=== PATIENT | female | born 1955 | race Caucasian/White ===

== ENCOUNTER 2017-02-07 14:06 | Emergency (ER) | payer MEDICARE, BC ==
--- NOTE | 2017-02-07 14:31 | Emergency Department Record ---
History of Present Illness - General Chief Complaint: Cough Stated Complaint: COUGH Time Seen by Provider: 02/07/17 14:16 Source: Patient, RN notes reviewed Mode of Arrival: Ambulatory - History of Present Illness Initial Comments: cough for 2 weeks and she recently had a sore throat and she was on an antibiotic for 10 days BID(Minocin 50 mg). Elvae aide in ER. Patient has sputum clear and her Uncle has a cough too. [facility] heart [place] transplant 2006 at [facility]. Patient's primary Dr. is Trent and she also has used her sisters jerrymina and proair inhaler. Diarrhea today times 2 and two stools loose yesterday. Patient also diabetic, Complaint: Cough Onset/Timin -: Week(s) Consistency: Intermittent - Related Data Home Medications Medication Instructions Recorded Confirmed Last Taken Acetaminophen [Tylenol 325Mg] 1 - 2 tab PO Q4H PRN 02/11/15 02/07/17 02/07/17 Aspirin [Aspirin EC] 81 mg PO DAILY 02/11/15 02/07/17 02/07/17 Calcium Carbonate/Vitamin D3 1 each PO DAILY 02/11/15 02/07/17 02/07/17 [Calcium 1,000 + D3 Caplet] Carvedilol [Coreg] 12.5 mg PO BID 02/11/15 02/07/17 02/07/17 Diphenhydramine HCl [Benadryl] 25 mg PO Q6H PRN 02/11/15 02/07/17 02/07/17 Ferrous Sulfate 325 mg PO BID 02/11/15 02/07/17 02/07/17 Insulin NPL/Insulin Lispro 16 units SQ QPM 02/11/15 02/07/17 02/07/17 [Humalog Mix 75/25 Vial] Insulin NPL/Insulin Lispro 30 units SQ QAM 02/11/15 02/07/17 02/07/17 [Humalog Mix 75/25 Vial] Magnesium Chloride [Mag64] 2 tab PO BID 02/11/15 02/07/17 02/07/17 Pravastatin Sodium [Pravachol] 40 mg PO QHS 02/11/15 02/07/17 02/07/17 Prednisone [Prednisone 1Mg] 4 mg PO DAILY 02/11/15 02/07/17 02/07/17 Sennosides [Senna] 8.6 mg PO DAILY 02/11/15 02/07/17 02/07/17 Sertraline HCl [Zoloft] 100 mg PO DAILY 02/11/15 02/07/17 02/07/17 Tacrolimus [Prograf] 1.5 mg PO Q12H 02/11/15 02/07/17 02/07/17 Previous Rx's Medication Instructions Recorded Albuterol Sulfate [Ventolin Hfa] 1 - 2 puff IH .EVERY 4-6 HRS PRN 02/07/17 #1 inhaler Prednisone [Prednisone 10Mg] 10 mg PO ASDIR #30 tab 02/07/17 Allergies Allergy/AdvReac Type Severity Reaction Status Date / Time Carbapenems Allergy Unknown PT UNSURE Verified 02/07/17 14:12 OF REACTION Cephalosporins Allergy Unknown HIVES Verified 02/07/17 14:12 codeine Allergy Unknown VOMITING Verified 02/07/17 14:12 erythromycin base Allergy Unknown HIVES Verified 02/07/17 14:12 hydrocodone Allergy Unknown VOMITING Verified 02/07/17 14:12 Macrolide Antibiotics Allergy Unknown HIVES Verified 02/07/17 14:12 morphine Allergy Unknown VOMITING Verified 02/07/17 14:12 Opioids - Morphine Analogues Allergy Unknown VOMITING Verified 02/07/17 14:12 Penicillins Allergy Unknown HIVES Verified 02/07/17 14:12 Phenothiazines Allergy Unknown HIVES Verified 02/07/17 14:12 promethazine Allergy Unknown HIVES Verified 02/07/17 14:12 Sulfa (Sulfonamide Allergy Unknown HIVES Verified 02/07/17 14:12 Antibiotics) sulfacetamide Allergy Unknown HIVES Verified 02/07/17 14:12 ondansetron HCl Allergy HIVES Verified 02/07/17 14:12 [From Zofran (as hydrochloride)] Travel Screening - Travel/Exposure Within Last 30 Days Have you traveled within the last 30 days?: No - Travel/Exposure Within Last Year Have you traveled outside the [place] in the last year?: No - Additonal Travel Details Have you been exposed to anyone with a communicable illness?: No - Travel Symptoms Symptom Screening: None Review of Systems Reviewed: No additional complaints except as noted below Constitutional: Reports: As per HPI. Denies: Chills, Fever, Malaise, Night sweats, Weakness, Weight change Eyes: Reports: As per HPI. Denies: Eye discharge, Eye pain, Photophobia, Vision change ENT: Reports: As per HPI, Congestion. Denies: Dental pain, Ear pain, Epistaxis , Hearing loss, Throat pain Respiratory: Reports: As per HPI, Cough. Denies: Dyspnea, Hemoptysis, Stridor, Wheezes Cardiovascular: Reports: As per HPI. Denies: Arrhythmia, Chest pain, Dyspnea on exertion, Edema, Murmurs, Orthopnea, Palpitations, Paroxysmal nocturnal dyspnea, Rheumatic Fever, Syncope Endocrine: Reports: As per HPI. Denies: Fatigue, Heat or cold intolerance, Polydipsia, Polyuria Gastrointestinal: Reports: As per HPI. Denies: Abdominal pain, Constipation, Diarrhea, Hematemesis, Hematochezia, Melena, Nausea, Vomiting Genitourinary: Reports: As per HPI. Denies: Abnormal menses, Discharge, Dyspareunia, Dysuria, Frequency, Hematuria, Incontinence, Retention, Urgency Musculoskeletal: Reports: As per HPI. Denies: Arthralgia, Back pain, Gout, Joint swelling, Myalgia, Neck pain Skin: Reports: As per HPI. Denies: Bruising, Change in color, Change in hair/ nails, Lesions, Pruritus, Rash Neurological: Reports: As per HPI. Denies: Abnormal gait, Confusion, Headache, Numbness, Paresthesias, Seizure, Tingling, Tremors, Vertigo, Weakness Psychiatric: Reports: As per HPI. Denies: Anxiety, Auditory hallucinations, Depression, Homicidal thoughts, Suicidal thoughts, Visual hallucinations Hematological/Lymphatic: Reports: As per HPI. Denies: Anemia, Blood Clots, Easy bleeding, Easy bruising, Swollen glands Past Medical History - SOCIAL HISTORY Smoking Status: Former smoker Alcohol Use: None Drug Use: None - RESPIRATORY Hx Respiratory Disorders: No - CARDIOVASCULAR Hx Cardio Disorders: Yes Comment:: Heart transplant 2006 - NEURO Hx Neuro Disorders: No - GI Hx GI Disorders: Yes Hx Abdominal Pain: Yes Hx Diverticulitis: Yes - Hx Genitourinary Disorders: Yes Hx Renal Disease: Yes Comment:: Kidney transplant 2009 and removal. 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) - MUSCULOSKELETAL Hx Musculoskeletal Disorders: No - PSYCH Hx Psych Problems: Yes Hx Anxiety: Yes - HEMATOLOGY/ONCOLOGY Hx Hematology/Oncology Disorders: Yes Hx Blood Transfusions: Yes Hx Blood Transfusion Reaction: No Family Medical History Any Significant Family History?: Yes Hx Anxiety: Mother Hx Cancer: Father Hx Depression: Mother Hx Diabetes: Mother Hx Heart Disease: Mother Hx HTN: Mother Hx Kidney Disease: Mother Physical Exam - General General Appearance: Alert, Oriented x3, Cooperative, No acute distress - Head Head exam: Normal inspection - Eye Eye exam: Normal appearance, PERRL Pupils: Normal accommodation - ENT ENT exam: Normal exam, Mucous membranes moist, Normal external ear exam, Normal orophraynx, TM's normal bilaterally Ear exam: Normal external inspection. negative: External canal tenderness Nasal Exam: Normal inspection. negative: Discharge, Sinus tenderness Mouth exam: Normal external inspection, Tongue normal Teeth exam: Normal inspection. negative: Dental caries Throat exam: Normal inspection. negative: Tonsillar erythema, Tonsillar exudate - Neck Neck exam: Normal inspection, Full ROM. negative: Tenderness - Respiratory Respiratory exam: Normal lung sounds bilaterally. negative: Respiratory distress - Cardiovascular Cardiovascular Exam: Regular rate, Normal rhythm, Normal heart sounds - GI/Abdominal GI/Abdominal exam: Soft, Normal bowel sounds. negative: Tenderness - Rectal Rectal exam: Deferred - exam: Deferred - Extremities Extremities exam: Normal inspection, Full ROM, Normal capillary refill. negative: Tenderness - Back Back exam: Reports: Normal inspection, Full ROM. Denies: Muscle spasm, Rash noted, Tenderness - Neurological Neurological exam: Alert, Normal gait, Oriented X3, Reflexes normal - Psychiatric Psychiatric exam: Normal affect, Normal mood - Skin Skin exam: Dry, Intact, Normal color, Warm Course Vital Signs 02/07/17 14:13 Temperature 97.6 F Pulse Rate 100 H Respiratory 20 Rate Blood Pressure 136/95 Pulse Ox 95 - Reevaluation(s) Reevaluation #1: patient states kidney transplant in 2008 and the transplant kidney and her kidney wake up. Kidney thinks she needs another kidney. 02/07/17 14:36 Reevaluation #2: Called [facility] to discuss the case 02/07/17 15:55 02/07/17 16:03 [address] Ernst rust Dr. and he agrees with the plan of care. Medical Decision Making - Data Complexity MDM Data: Labs Ordered and/or Reviewed, X-Ray Ordered and/or Reviewed (No acute process copd and cardiomeg) - Lab Data Result diagrams: 02/07/17 14:50 02/07/17 14:50 Disposition Clinical Impression: COPD with exacerbation, Bronchitis, Hyperactive airway disease Disposition: Home, Self-Care Condition: (1) Good Instructions: Cold Symptoms (ED), Acute Bronchitis (ED), COPD (Chronic Obstructive Pulmonary Disease) (ED) Additional Instructions: fluids follow up with Dr. Newman in 6 days use albuterol inhaler four times a day prednisone taper Prescriptions: Albuterol Sulfate [Ventolin Hfa] 1 - 2 puff IH .EVERY 4-6 HRS PRN #1 inhaler PRN Reason: Wheezing Prednisone [Prednisone 10Mg] 10 mg PO ASDIR #30 tab Forms: Patient Portal Access Time of Disposition: 16:07
[2017-02-07 15:01] LABS: BASO % 0.6 % (0-6); EOS % 3.6 % (0-6); GRAN % 70.3 % (47-80); HEMATOCRIT 29.9 % (35.0-47.0); HEMOGLOBIN 9.9 gm/dl (11.6-16.0); LYMPH % 19.7 % (16-45); MEAN CELL VOLUME 85.2 fl (81-97); MEAN CORPUSCULAR HEMOGLOBIN 28.2 pg (27-33); MEAN CORPUSCULAR HGB CONC 33.1 g/dl (32-36); MEAN PLATELET VOLUME 9.3 fl (7.4-10.4); MONO % 5.8 % (0-9); PLATELET COUNT 172 K/uL (130-400); RED BLOOD COUNT 3.51 M/uL (3.80-5.40); RED CELL DISTRIBUTION WIDTH 16.2 % (11.5-14.5); WHITE BLOOD COUNT W/O DIFF 3.3 K/uL (4.2-12.2)
[2017-02-07 15:13] LABS: ANION GAP 6.8 (7-16); CARBON DIOXIDE 22.2 mmol/L (22-30); CREATININE 2.4 mg/dL (0.52-1.04)
--- NOTE | 2017-02-09 16:13 | RADIOLOGY REPORT ---
EXAM: CHEST 2 VIEWS HISTORY: NONPRODUCTIVE COUGH FOR TWO WEEKS. TECHNIQUE: Two-view chest. COMPARISON: None. FINDINGS: Sternotomy wires are present. Vascular stent overlies the left upper lung. Lungs are hyperinflated although otherwise clear. Cardiac silhouette is borderline prominent. Diaphragm is flat and osseous structures are unremarkable. IMPRESSION: EMPHYSEMA. BORDERLINE CARDIOMEGALY. NO ACUTE PROCESS. JOB NUMBER: [id number] MTDD
== END 2017-02-07 16:21 | disposition home or self-care (01) ==
LOC: ER 14:06
DX: J44.1 Chronic obstructive pulmonary disease with (acute) exacerbation (principal); J20.9 Acute bronchitis, unspecified; J44.0 Chronic obstructive pulmonary disease with (acute) lower respiratory infection; R19.7 Diarrhea, unspecified; Z87.891 Personal history of nicotine dependence; E11.9 Type 2 diabetes mellitus without complications; Z79.4 Long term (current) use of insulin; Z94.1 Heart transplant status; Z94.0 Kidney transplant status
CPT/HCPCS: 71020; 80048; 83735; 85025; 99283; 99284

== ENCOUNTER 2017-11-18 11:18 | Emergency (ER) | payer MEDICARE, BC ==
[2017-11-18] MEDS ORDERED: 0.9% SODIUM CHLORIDE 250ML BAG IV ONE (12:10)
[2017-11-18 12:18] LABS: BASO % 0.8 % (0-6); EOS % 6.2 % (0-6); HEMOGLOBIN 9.6 gm/dl (11.6-16.0); LYMPH % 18.5 % (16-45); MEAN CELL VOLUME 85.5 fl (81-97); MEAN PLATELET VOLUME 9.6 fl (7.4-10.4); MONO % 8.5 % (0-9); PLATELET COUNT 167 K/uL (130-400); RED BLOOD COUNT 3.51 M/uL (3.80-5.40); RED CELL DISTRIBUTION WIDTH 16.1 % (11.5-14.5); WHITE BLOOD COUNT W/O DIFF 3.9 K/uL (4.2-12.2)
--- NOTE | 2017-11-18 12:19 | Emergency Department Record ---
History of Present Illness - General Chief Complaint: Abdominal Pain Stated Complaint: LOWER BELLY PAIN Time Seen by Provider: 11/18/17 11:26 Source: Patient Mode of Arrival: Ambulatory Limitations: No limitations - History of Present Illness Initial Comments: pt has had increasing superpubic abd pain for a week. she had a neg urine but was started on macrodantin and pyridium 2 days ago. the pain has grown worse and she has developed diarrhea in the last 2 days. pt is post heart transplant and kidney transplant MD Complaint: Abdominal pain Onset/Timin -: Days(s) Location: Suprapubic Radiation: LLQ, RLQ Severity: Moderate Quality: Aching Associated Symptoms: Diarrhea, Nausea - Related Data Patient : No Home Medications Medication Instructions Recorded Confirmed Last Taken Insulin Aspart [Novolog] 1 unit SQ ASDIR 11/18/17 11/18/17 1 Day Ago ~11/17/17 Insulin Glargine,Hum.rec.anlog 40 unit SQ QPM 11/18/17 11/18/17 1 Day Ago [Lantus] ~11/17/17 Nitrofurantoin Macrocrystal 100 mg PO TID 11/18/17 11/18/17 1 Day Ago [Macrodantin] ~11/17/17 Phenazopyridine HCl [Pyridium] 200 mg PO TID 11/18/17 11/18/17 1 Day Ago ~11/17/17 Previous Rx's Medication Instructions Recorded Albuterol Sulfate [Ventolin Hfa] 1 - 2 puff IH .EVERY 4-6 HRS PRN 02/07/17 #1 inhaler Prednisone [Prednisone 10Mg] 10 mg PO ASDIR #30 tab 02/07/17 Allergies Allergy/AdvReac Type Severity Reaction Status Date / Time Carbapenems Allergy Unknown PT UNSURE Verified 11/18/17 11:36 OF REACTION Cephalosporins Allergy Unknown HIVES Verified 11/18/17 11:36 codeine Allergy Unknown VOMITING Verified 11/18/17 11:36 erythromycin base Allergy Unknown HIVES Verified 11/18/17 11:36 hydrocodone Allergy Unknown VOMITING Verified 11/18/17 11:36 Macrolide Antibiotics Allergy Unknown HIVES Verified 11/18/17 11:36 morphine Allergy Unknown VOMITING Verified 11/18/17 11:36 Opioids - Morphine Analogues Allergy Unknown VOMITING Verified 11/18/17 11:36 Penicillins Allergy Unknown HIVES Verified 11/18/17 11:36 Phenothiazines Allergy Unknown HIVES Verified 11/18/17 11:36 promethazine Allergy Unknown HIVES Verified 11/18/17 11:36 Sulfa (Sulfonamide Allergy Unknown HIVES Verified 11/18/17 11:36 Antibiotics) sulfacetamide Allergy Unknown HIVES Verified 11/18/17 11:36 ondansetron HCl Allergy HIVES Verified 11/18/17 11:36 [From Zofran (as hydrochloride)] Travel Screening - Travel/Exposure Within Last 30 Days Have you traveled within the last 30 days?: No - Travel/Exposure Within Last Year Have you traveled outside the [place] in the last year?: No - Additonal Travel Details Have you been exposed to anyone with a communicable illness?: No - Travel Symptoms Symptom Screening: None Review of Systems Reviewed: No additional complaints except as noted below Constitutional: Reports: As per HPI. Denies: Chills, Fever, Malaise, Night sweats, Weakness, Weight change Eyes: Reports: As per HPI. Denies: Eye discharge, Eye pain, Photophobia, Vision change ENT: Reports: As per HPI. Denies: Congestion, Dental pain, Ear pain, Epistaxis , Hearing loss, Throat pain Respiratory: Reports: As per HPI. Denies: Cough, Dyspnea, Hemoptysis, Stridor, Wheezes Cardiovascular: Reports: As per HPI. Denies: Arrhythmia, Chest pain, Dyspnea on exertion, Edema, Murmurs, Orthopnea, Palpitations, Paroxysmal nocturnal dyspnea, Rheumatic Fever, Syncope Endocrine: Reports: As per HPI. Denies: Fatigue, Heat or cold intolerance, Polydipsia, Polyuria Gastrointestinal: Reports: As per HPI, Abdominal pain, Diarrhea. Denies: Constipation, Hematemesis, Hematochezia, Melena, Nausea, Vomiting Genitourinary: Reports: As per HPI. Denies: Abnormal menses, Discharge, Dyspareunia, Dysuria, Frequency, Hematuria, Incontinence, Retention, Urgency Musculoskeletal: Reports: As per HPI. Denies: Arthralgia, Back pain, Gout, Joint swelling, Myalgia, Neck pain Skin: Reports: As per HPI. Denies: Bruising, Change in color, Change in hair/ nails, Lesions, Pruritus, Rash Neurological: Reports: As per HPI. Denies: Abnormal gait, Confusion, Headache, Numbness, Paresthesias, Seizure, Tingling, Tremors, Vertigo, Weakness Psychiatric: Reports: As per HPI. Denies: Anxiety, Auditory hallucinations, Depression, Homicidal thoughts, Suicidal thoughts, Visual hallucinations Hematological/Lymphatic: Reports: As per HPI. Denies: Anemia, Blood Clots, Easy bleeding, Easy bruising, Swollen glands Past Medical History - SOCIAL HISTORY Smoking Status: Former smoker Alcohol Use: None Drug Use: None - RESPIRATORY Hx Respiratory Disorders: No - CARDIOVASCULAR Hx Cardio Disorders: Yes Comment:: Heart transplant 2006, secondary to cardiomyopathy - NEURO Hx Neuro Disorders: No - GI Hx GI Disorders: Yes Hx Abdominal Pain: Yes Hx Diverticulitis: Yes - Hx Genitourinary Disorders: Yes Hx Renal Disease: Yes Comment:: Kidney transplant 2008 and removal. 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) - MUSCULOSKELETAL Hx Musculoskeletal Disorders: No - PSYCH Hx Psych Problems: Yes Hx Anxiety: Yes - HEMATOLOGY/ONCOLOGY Hx Hematology/Oncology Disorders: Yes Hx Blood Transfusions: Yes Hx Blood Transfusion Reaction: No Family Medical History Any Significant Family History?: Yes Hx Anxiety: Mother Hx Cancer: Father Hx Depression: Mother Hx Diabetes: Mother Hx Heart Disease: Mother Hx HTN: Mother Hx Kidney Disease: Mother Physical Exam - General General Appearance: Alert, Oriented x3, Cooperative, Mild distress - Head Head exam: Normal inspection - Eye Eye exam: Normal appearance, PERRL, EOMI Pupils: Normal accommodation - ENT ENT exam: Normal exam, Mucous membranes moist, Normal external ear exam, Normal orophraynx Ear exam: Normal external inspection. negative: External canal tenderness Nasal Exam: Normal inspection. negative: Discharge, Sinus tenderness Mouth exam: Normal external inspection, Tongue normal Teeth exam: Normal inspection. negative: Dental caries Throat exam: Normal inspection. negative: Tonsillar erythema, Tonsillar exudate - Neck Neck exam: Normal inspection, Full ROM. negative: Tenderness - Respiratory Respiratory exam: Normal lung sounds bilaterally. negative: Respiratory distress - Cardiovascular Cardiovascular Exam: Normal rhythm, Normal heart sounds, Tachycardia - GI/Abdominal GI/Abdominal exam: Soft, Normal bowel sounds, Tenderness - Rectal Rectal exam: Deferred - exam: Deferred - Extremities Extremities exam: Normal inspection, Full ROM, Normal capillary refill. negative: Tenderness - Back Back exam: Reports: Normal inspection, Full ROM. Denies: Muscle spasm, Rash noted, Tenderness - Neurological Neurological exam: Alert, Normal gait, Oriented X3, Reflexes normal - Psychiatric Psychiatric exam: Normal affect, Normal mood - Skin Skin exam: Dry, Intact, Normal color, Warm Course Vital Signs 11/18/17 11:23 Temperature 97.5 F L Pulse Rate 109 H Respiratory 18 Rate Blood Pressure 125/70 Pulse Ox 95 Medical Decision Making - Lab Data Result diagrams: 11/18/17 11:50 11/18/17 11:50 Disposition Disposition: Transfer Clinical Impression: Diverticulitis, Status post heart transplant, S/P kidney transplant Renal failure Qualifiers: Renal failure chronicity: chronic Chronic kidney disease stage: unspecified stage Qualified Code(s): N18.9 - Chronic kidney disease, unspecified Disposition: Acute Care Hospital Transfer Transfer To: of Reason For Transfer: transplant drs and surgeon available Accepting Physician: abir Time Discussed w/Accepting Physician: 14:41 Forms: Patient Portal Access Quality - Quality Measures Quality Measures: N/A - Blood Pressure Screening Does Patient Have Any of the Following: No Blood Pressure Classification: Pre-Hypertensive BP Reading Systolic Measurement: 125 Diastolic Measurement: 70 Screening for High Blood Pressure: < Pre-Hypertensive BP, F/U Documented > [ [id number]] Pre-Hypertensive Follow-up Interventions: Follow-up with rescreen every year.
[2017-11-18] MEDS ORDERED: 0.9 % SODIUM CHLORIDE 1,000 ML BAG IV ONE (12:21)
[2017-11-18 12:25] LABS: MEAN CORPUSCULAR HEMOGLOBIN 27.3 pg (27-33)
[2017-11-18 12:28] LABS: ROTOVIRUS NOT DETECTED (NOT DETECT)
[2017-11-18 12:36] LABS: BILIRUBIN,TOTAL 0.7 mg/dL (0.2-1.0); CREATININE 2.2 mg/dL (0.5-0.9); TOTAL PROTEIN 6.9 g/dL (6.6-8.7)
[2017-11-18 12:41] LABS: ALB/GLOB RATIO 1.3 (1.1-1.8); ALBUMIN 3.9 g/dL (4.0-5.0)
[2017-11-18 12:57] LABS: CRYPTOSPORIDIUM PARVUM ANTIGEN NOT DETECTED (NOT DETECT); GIARDIA LAMBLIA ANTIGEN NOT DETECTED (NOT DETECT); MOLECULAR C DIFF TOXIN SCREEN NOT DETECTED (NOT DETECT)
[2017-11-18 14:17] LABS: URINE APPEARANCE CLEAR; URINE COLOR STRAW
[2017-11-18 14:18] LABS: URINE BILIRUBIN NEGATIVE (NEGATIVE); URINE BLOOD NEGATIVE (NEGATIVE); URINE KETONE NEGATIVE (NEGATIVE); URINE LEUKOCYTE ESTERASE NEGATIVE (NEGATIVE); URINE NITRITE NEGATIVE (NEGATIVE); URINE PROTEIN TRACE (NEGATIVE)
[2017-11-18] MEDS ORDERED: CIPROFLOXACIN LACTATE/D5W 400 MG/200 ML BAG IVPB ONE (14:24)
[2017-11-18] MEDS ORDERED: HYDROMORPHONE HCL 2 MG/ML VIAL IVP ONE (14:33)
--- NOTE | 2017-11-19 12:57 | CT SCAN REPORT ---
EXAM: CT SCAN OF THE ABDOMEN AND PELVIS HISTORY: PATIENT HAS LOWER ABDOMINAL PAIN. TECHNIQUE: Serial axial CT scan of the abdomen and pelvis was performed at 2.5 mm intervals from the dome of the diaphragm down to the pubic symphysis without the use of intravenous or oral contrast. Comparison: CT scan of the abdomen and pelvis dated 02/11/15 is provided. FINDINGS: The lung windows of the lung bases demonstrate no CT evidence of a focal infiltrate or pleural effusions. The visualized heart size and contour demonstrates cardiomegaly. The liver demonstrates mild surface contour nodularity suggesting cirrhosis. No focal hepatic lesions are identified. This finding appears similar to the prior CT scan. Clinical correlation is recommended. The spleen measures 20 cm in craniocaudad dimension. This finding is similar in size with respect to the prior CT scan. These findings are compatible with splenomegaly. No focal splenic lesions are identified. The pancreas and adrenal glands are unremarkable. The gallbladder is not clearly visualized. There is a 1.5 cm focus of fluid attenuation identified in the region of the gallbladder fossa which may be a prominent cystic duct. This is unchanged with respect to the prior CT scan. The patient has surgical history of cholecystectomy. There is no CT evidence of hydronephrosis or hydroureter. No renal or ureteral calculi are noted. Simple cysts at the inferior pole of the left kidney is unchanged with respect to the prior CT scan. The contour and caliber of the noncontrasted abdominal aorta is within normal limits. There is no CT evidence of retroperitoneal, pelvic, or inguinal lymphadenopathy. The bowel gas pattern is nonobstructive. There is subtle pericolonic fat stranding surrounding the mid sigmoid colon. Multiple colonic diverticula are noted within this region. These findings suggest acute diverticulitis. No microperforation or pericolonic abscess is noted. The appendix is clearly visualized and there is no CT evidence of appendicitis. There is no CT evidence of free intraperitoneal fluid or free intraperitoneal air. There is thinning of the anterior midline abdominal wall in the periumbilical region compatible with history of surgery in this region. There is a 3.8 cm hernia within the superior midline abdominal wall which is unchanged with respect to the prior examination. Herniated omental fat is noted in this region. The urinary bladder is partially decompressed. The uterus is absent. Bone windows demonstrate no CT evidence of a fracture or dislocation of the visualized osseous structures. IMPRESSION: 1. FINDINGS COMPATIBLE WITH MILD ACUTE DIVERTICULITIS WITHIN THE MID TO DISTAL SIGMOID COLON. AGAIN, NO MICROPERFORATION OR PERIDIVERTICULAR ABSCESS IS NOTED. 2. FINDINGS SUGGESTIVE OF CIRRHOSIS WITH SPLENOMEGALY DESCRIBED. 3. ANTERIOR UPPER MIDLINE ABDOMINAL WALL HERNIA APPEARS STABLE WITH RESPECT TO THE CT SCAN. JOB NUMBER: [id number] MTDD
== END 2017-11-18 15:18 | disposition short-term general hospital (02) ==
LOC: ER 11:18
DX: K57.92 Diverticulitis of intestine, part unspecified, without perforation or abscess without bleeding (principal); E09.22 Drug or chemical induced diabetes mellitus with diabetic chronic kidney disease; N18.9 Chronic kidney disease, unspecified; R11.0 Nausea; R19.7 Diarrhea, unspecified; Z94.1 Heart transplant status; Z94.0 Kidney transplant status; Z79.4 Long term (current) use of insulin; Z87.891 Personal history of nicotine dependence
CPT/HCPCS: 99285 ×2; 96365; 96375; 96361; 83690; 87329; 85025; 80053; 89055; 87425; 81003; 87427; 82272; 87493; 74176; J0744; J1170; J7030

== ENCOUNTER 2018-01-22 08:08 | Emergency (ER) | payer MEDICARE, BC ==
[2018-01-22] MEDS ORDERED: HYDROMORPHONE HCL 2 MG/ML VIAL IM ONE (08:18)
[2018-01-22] MEDS ORDERED: DIPHENHYDRAMINE HCL 25 MG CAPSULE PO ONE (08:22)
--- NOTE | 2018-01-22 08:24 | Emergency Department Record ---
History of Present Illness - General Chief complaint: Lower Extremity Pain Stated complaint: KNEE PAIN Time Seen by Provider: 01/22/18 08:18 Source: Patient Mode of Arrival: Ambulatory Limitations: No limitations - History of Present Illness Initial comments: 62 yo female presents with left knee pain. She states she has chronic knee pain. She states the knee is bone on bone. She has seen an orthopedist in the past at [facility] a "couple years ago". She has a history of heart transplant. She states the orthopedist refused surgery due to the heart transplant. She states she was told to get a scooter or walker. The last 2 days the pain has gotten worse. No new trauma. No weakness, numbness, tingling. No swelling or redness. She is walking today with her cane without limitations but with pain. No numbness or tingling. She states she has had numerous steroid and gel injections in the past. She states those therapies have never worked. She has not seen her PCP for this problem recently to discuss a termite treater plan for a seemingly difficult situation due to her heart transplant and poor kidney function. She has not arranged a walker or a scooter to date. Complaint: Joint pain Onset/Timin -: Days(s) Location: Left, Knee History of Same: Yes Severity scale (1-10): 10 Quality: Aching Consistency: Constant Improves with: Nothing Worsens with: Walking, Weight bearing Associated Symptoms: Denies other symptoms - Related Data Home Medications Medication Instructions Recorded Confirmed Last Taken Insulin Aspart [Novolog Flexpen] 34 units SQ QAM 01/22/18 01/22/18 Unknown Previous Rx's Medication Instructions Recorded Albuterol Sulfate [Ventolin Hfa] 1 - 2 puff IH .EVERY 4-6 HRS PRN 02/07/17 #1 inhaler Allergies Allergy/AdvReac Type Severity Reaction Status Date / Time Carbapenems Allergy Unknown PT UNSURE Verified 01/22/18 08:15 OF REACTION Cephalosporins Allergy Unknown HIVES Verified 01/22/18 08:15 erythromycin base Allergy Unknown HIVES Verified 01/22/18 08:15 Macrolide Antibiotics Allergy Unknown HIVES Verified 01/22/18 08:15 Penicillins Allergy Unknown HIVES Verified 01/22/18 08:15 Phenothiazines Allergy Unknown HIVES Verified 01/22/18 08:15 promethazine Allergy Unknown HIVES Verified 01/22/18 08:15 Sulfa (Sulfonamide Allergy Unknown HIVES Verified 01/22/18 08:15 Antibiotics) sulfacetamide Allergy Unknown HIVES Verified 01/22/18 08:15 ondansetron HCl Allergy HIVES Verified 01/22/18 08:15 [From Zofran (as hydrochloride)] codeine AdvReac Unknown VOMITING Verified 01/22/18 08:16 hydrocodone AdvReac Unknown VOMITING Verified 01/22/18 08:16 morphine AdvReac Unknown VOMITING Verified 01/22/18 08:16 Opioids - Morphine Analogues AdvReac Unknown VOMITING Verified 01/22/18 08:16 Travel Screening - Travel/Exposure Within Last 30 Days Have you traveled within the last 30 days?: No Review of Systems Constitutional: Denies: Chills, Fever, Malaise, Weakness Eyes: Denies: Eye discharge ENT: Denies: Congestion, Throat pain Respiratory: Denies: Cough Cardiovascular: Denies: Chest pain, Palpitations, Syncope Endocrine: Denies: Fatigue, Polydipsia, Polyuria Gastrointestinal: Denies: Abdominal pain, Diarrhea, Nausea, Vomiting Genitourinary: Denies: Dysuria, Urgency Musculoskeletal: Reports: Arthralgia. Denies: Back pain, Joint swelling, Myalgia, Neck pain Skin: Denies: Bruising, Change in color, Rash Neurological: Denies: Headache, Numbness, Weakness Psychiatric: Denies: Anxiety Hematological/Lymphatic: Denies: Blood Clots, Easy bleeding, Easy bruising, Swollen glands Past Medical History - SOCIAL HISTORY Smoking Status: Former smoker Alcohol Use: None Drug Use: None - RESPIRATORY Hx Respiratory Disorders: No - CARDIOVASCULAR Hx Cardio Disorders: Yes Comment:: Heart transplant 2006, secondary to cardiomyopathy - NEURO Hx Neuro Disorders: No - GI Hx GI Disorders: Yes Hx Abdominal Pain: Yes Hx Diverticulitis: Yes - Hx Genitourinary Disorders: Yes Hx Renal Disease: Yes Comment:: Kidney transplant 2008 and removal. 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 ) Limitations: No limitations - Head Head exam: Atraumatic, Normal inspection - Eye Eye exam: Normal appearance. negative: Conjunctival injection, Scleral icterus - ENT ENT exam: Normal exam Nasal Exam: Normal inspection Mouth exam: Normal external inspection Teeth exam: Normal inspection - Neck Neck exam: Normal inspection - Respiratory Respiratory exam: Normal lung sounds bilaterally. negative: Respiratory distress - Cardiovascular Cardiovascular Exam: Regular rate, Normal rhythm - GI/Abdominal GI/Abdominal exam: Soft. negative: Tenderness - Rectal Rectal exam: Deferred - exam: Deferred - Extremities Extremities exam: Normal inspection, Full ROM, Normal capillary refill, Tenderness (tender lateral knee, no popliteal tenderness, no calf swelling or tenderness, pain with LCL ligament distraction, pain with full ROM but no limit on the ROM). negative: Calf tenderness, Joint swelling, Pedal edema - Back Back exam: Denies: CVA tenderness (R), CVA tenderness (L), Tenderness - Neurological Neurological exam: Alert, Oriented X3. negative: Motor sensory deficit - Psychiatric Psychiatric exam: Normal affect, Normal mood - Skin Skin exam: Dry, Intact, Normal color, Warm, Other (leg appears normal, no erythema, no abnormal warmth, no pallor). negative: Cyanosis, Diaphoretic, Erythema, Mottled, Pallor Course Vital Signs 01/22/18 08:10 Temperature 97.5 F L Pulse Rate 101 H Respiratory 20 Rate Blood Pressure 150/89 Pulse Ox 98 - Reevaluation(s) Reevaluation #1: 01/22/18 08:23 The patient was seen and examined She ambulates with a cane without any significant difficulty throughout the department She requests pain medication but can not take NSIADS due to CKD and heart transplant She was offered non narcotic but she states pain is too severe. She was told it is our policy to NOT have patients drive after narcotics in the ED She assured me and the RN she will not drive and will get a ride. She states she can take Dilaudid without reaction. She states she has had it many times without allergy symptoms or reaction. 01/22/18 08:27 XR was reviewed Degenerative changes on the XR with joint space narrowing. No fracture or dislocation 01/22/18 09:37 I explained that [facility] is a critical access hospital with on-sight orthopedics. I explained the limitations of what can be provided at this hospital due to the limited resources a small critical care hospital has. [facility] Due to her heart transplant and CKD I recommended follow up with her [facility] doctors as soon as possible. She ambulates without assistance with a cane. I recommend a walker for support. She is to call her PCP as well to order a scooter at this is likely her best long turn option if no one is willing to do surgery due to her complicated history. She states she has a supportive family. I encouraged her to use them to assist with home care and to take her to [facility] for an evaluation if not improving. 01/22/18 09:57 Patient struggling to find a ride at this time. Will continue to assist her 01/22/18 10:07 A walker was provided as well as sizing and instructions I urged her to call her PCP for a scooter as there likely will no be resolution of her knee pain any time in the near future. I offered to call Dr Amado. She declined this offer. Disposition Disposition: Discharge Clinical Impression: Arthritis of knee, left Disposition: Home, Self-Care Condition: (1) Good Instructions: Arthritis (ED) Additional Instructions: Call your specialist for all recommendations for medications Call your orthopedist for a recheck of your ongoing knee pain Call your family doctor for a scooter prescription Use the walker for support Ice the knee every 6 hours. Forms: Patient Portal Access Time of Disposition: 09:41 Quality - Quality Measures Quality Measures: N/A - Blood Pressure Screening Does Patient Have Any of the Following: Active Dx of HTN Blood Pressure Classification: Normal BP Reading Systolic Measurement: 116 Diastolic Measurement: 69 Screening for High Blood Pressure: Patient Exclusion, Hx of HTN [G9744]
[2018-01-22] MEDS ORDERED: ONDANSETRON 4 MG ODT TABLET SL ONE (10:22)
--- NOTE | 2018-01-23 09:13 | RADIOLOGY REPORT ---
EXAM: LEFT KNEE HISTORY: ACUTE LEFT KNEE PAIN WITH PREEXISTING CHRONIC LEFT KNEE PAIN WELL. NO KNOWN INJURY. TECHNIQUE: Five views of the left knee were obtained. Comparison: No prior left knee series, but comparison is made with a left lower leg series of 01/08/17. FINDINGS: There is moderate degenerative arthritis in the left knee particularly involving the medial compartment, similar to before. Some artifact is seen overlying the knee, but the knee appears otherwise essentially negative. No definite fracture, dislocation, or destructive lesion is seen and no definite joint effusion identified. IMPRESSION: MODERATE DEGENERATIVE ARTHRITIS LEFT KNEE. JOB NUMBER: [id number] [facility]
== END 2018-01-22 12:16 | disposition home or self-care (01) ==
LOC: ER 08:08
DX: M17.12 Unilateral primary osteoarthritis, left knee (principal); I12.9 Hypertensive chronic kidney disease with stage 1 through stage 4 chronic kidney disease, or unspecified chronic kidney disease; N18.9 Chronic kidney disease, unspecified; E09.22 Drug or chemical induced diabetes mellitus with diabetic chronic kidney disease; Z87.891 Personal history of nicotine dependence; Z94.1 Heart transplant status; Z94.0 Kidney transplant status
CPT/HCPCS: 99283; 96372; 99284; 73564; J1170

== ENCOUNTER 2018-02-02 21:33 | Emergency (ER) | payer MEDICARE, BC ==
--- NOTE | 2018-02-02 21:52 | Emergency Department Record ---
History of Present Illness - General Chief complaint: Pain Stated complaint: RIGHT KNEE AND HIP PAIN Time Seen by Provider: 02/02/18 21:40 Source: Patient, EMS Mode of Arrival: EMS - History of Present Illness Initial comments: The patient states she was at her home, ambulating with her walker due to chronic knee pain. She suddenly developed severe knee pain on the right knee all around into the back of the knee and beneath the patella. She did not fall to the ground, but was unable to bear weight. She took some of her dilaudid pills for the pain. She saw her heart doctor yesterday at [facility] and was told everything is going well with her heart transplant which was done over 10 years ago at the [facility]. She take immune suppression medication for this. She stats she is about to get referred to have her left knee joint replacement for "bone on bone." Tonight it was her right knee which cause her all the pain for which she came in. MD Complaint: Extremity pain Onset/Timin -: Minutes(s) Location: Right Severity scale (1-10): >10 Associated Symptoms: Denies other symptoms - Related Data Previous Rx's Medication Instructions Recorded Albuterol Sulfate [Ventolin Hfa] 1 - 2 puff IH .EVERY 4-6 HRS PRN 02/07/17 #1 inhaler Allergies Allergy/AdvReac Type Severity Reaction Status Date / Time Carbapenems Allergy Unknown PT UNSURE Verified 01/22/18 08:15 OF REACTION Cephalosporins Allergy Unknown HIVES Verified 01/22/18 08:15 erythromycin base Allergy Unknown HIVES Verified 01/22/18 08:15 Macrolide Antibiotics Allergy Unknown HIVES Verified 01/22/18 08:15 Penicillins Allergy Unknown HIVES Verified 01/22/18 08:15 Phenothiazines Allergy Unknown HIVES Verified 01/22/18 08:15 promethazine Allergy Unknown HIVES Verified 01/22/18 08:15 Sulfa (Sulfonamide Allergy Unknown HIVES Verified 01/22/18 08:15 Antibiotics) sulfacetamide Allergy Unknown HIVES Verified 01/22/18 08:15 ondansetron HCl Allergy HIVES Verified 01/22/18 08:15 [From Zofran (as hydrochloride)] codeine AdvReac Unknown VOMITING Verified 01/22/18 08:16 hydrocodone AdvReac Unknown VOMITING Verified 01/22/18 08:16 morphine AdvReac Unknown VOMITING Verified 01/22/18 08:16 Opioids - Morphine Analogues AdvReac Unknown VOMITING Verified 01/22/18 08:16 Travel Screening - Travel/Exposure Within Last 30 Days Have you traveled within the last 30 days?: No - Travel/Exposure Within Last Year Have you traveled outside the [place] in the last year?: No - Additonal Travel Details Have you been exposed to anyone with a communicable illness?: No - Travel Symptoms Symptom Screening: None Review of Systems Reviewed: No additional complaints except as noted below Constitutional: Reports: As per HPI. Denies: Chills, Fever, Malaise, Night sweats, Weakness, Weight change Eyes: Reports: As per HPI. Denies: Eye discharge, Eye pain, Photophobia, Vision change ENT: Reports: As per HPI. Denies: Congestion, Dental pain, Ear pain, Epistaxis , Hearing loss, Throat pain Respiratory: Reports: As per HPI. Denies: Cough, Dyspnea, Hemoptysis, Stridor, Wheezes Cardiovascular: Reports: As per HPI. Denies: Arrhythmia, Chest pain, Dyspnea on exertion, Edema, Murmurs, Orthopnea, Palpitations, Paroxysmal nocturnal dyspnea, Rheumatic Fever, Syncope Endocrine: Reports: As per HPI. Denies: Fatigue, Heat or cold intolerance, Polydipsia, Polyuria Gastrointestinal: Reports: As per HPI. Denies: Abdominal pain, Constipation, Diarrhea, Hematemesis, Hematochezia, Melena, Nausea, Vomiting Genitourinary: Reports: As per HPI. Denies: Abnormal menses, Discharge, Dyspareunia, Dysuria, Frequency, Hematuria, Incontinence, Retention, Urgency Musculoskeletal: Reports: As per HPI. Denies: Arthralgia, Back pain, Gout, Joint swelling, Myalgia, Neck pain Skin: Reports: As per HPI. Denies: Bruising, Change in color, Change in hair/ nails, Lesions, Pruritus, Rash Neurological: Reports: As per HPI. Denies: Abnormal gait, Confusion, Headache, Numbness, Paresthesias, Seizure, Tingling, Tremors, Vertigo, Weakness Psychiatric: Reports: As per HPI. Denies: Anxiety, Auditory hallucinations, Depression, Homicidal thoughts, Suicidal thoughts, Visual hallucinations Hematological/Lymphatic: Reports: As per HPI. Denies: Anemia, Blood Clots, Easy bleeding, Easy bruising, Swollen glands Past Medical History - SOCIAL HISTORY Smoking Status: Former smoker Alcohol Use: None Drug Use: None - RESPIRATORY Hx Respiratory Disorders: No - CARDIOVASCULAR Hx Cardio Disorders: Yes Comment:: Heart transplant 2006, secondary to cardiomyopathy - NEURO Hx Neuro Disorders: No - GI Hx GI Disorders: Yes Hx Abdominal Pain: Yes Hx Diverticulitis: Yes - Hx Genitourinary Disorders: Yes Hx Renal Disease: Yes Comment:: Kidney transplant 2008 and removal. 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) - MUSCULOSKELETAL Hx Musculoskeletal Disorders: Yes Hx Arthritis: Yes - PSYCH Hx Psych Problems: Yes Hx Anxiety: Yes - HEMATOLOGY/ONCOLOGY Hx Hematology/Oncology Disorders: Yes Hx Blood Transfusions: Yes Hx Blood Transfusion Reaction: No Family Medical History Any Significant Family History?: Yes Hx Anxiety: Mother Hx Cancer: Father Hx Depression: Mother Hx Diabetes: Mother Hx Heart Disease: Mother Hx HTN: Mother Hx Kidney Disease: Mother Physical Exam - General General Appearance: Alert, Oriented x3, Cooperative, Mild distress - Head Head exam: Normal inspection Image of Face/Head: 1 - recent but not new scratches scabbed over, no cellulitis. also on her forehead cheek areas - Eye Eye exam: Normal appearance, PERRL Pupils: Normal accommodation - ENT ENT exam: Normal exam, Mucous membranes moist, Normal external ear exam, Normal orophraynx, TM's normal bilaterally Ear exam: Normal external inspection. negative: External canal tenderness Nasal Exam: Normal inspection. negative: Discharge, Sinus tenderness Mouth exam: Normal external inspection, Tongue normal Teeth exam: Normal inspection. negative: Dental caries Throat exam: Normal inspection. negative: Tonsillar erythema, Tonsillar exudate - Neck Neck exam: Normal inspection, Full ROM. negative: Lymphadenopathy, Meningismus , Tenderness - Respiratory Respiratory exam: Normal lung sounds bilaterally. negative: Accessory muscle use, Chest wall tenderness, Decreased breath sounds, Prolonged expiratory, Respiratory distress, Rhonchi, Stridor, Wheezes - Cardiovascular Cardiovascular Exam: Regular rate, Normal rhythm, Normal heart sounds - GI/Abdominal GI/Abdominal exam: Soft, Normal bowel sounds. negative: Tenderness - Rectal Rectal exam: Deferred - exam: Deferred - Extremities Extremities exam: Normal inspection, Full ROM, Normal capillary refill, Tenderness (Right knee very tender to light palpation anteriorly and posteriorly. Patient is unable to so SLR due to pain. Left knee nontender on palpation) - Back Back exam: Reports: Normal inspection, Full ROM. Denies: Muscle spasm, Rash noted, Tenderness - Neurological Neurological exam: Alert, Normal gait, Oriented X3, Reflexes normal - Psychiatric Psychiatric exam: Normal affect, Normal mood - Skin Skin exam: Dry, Intact, Normal color, Warm Course Vital Signs 02/02/18 21:36 Temperature 98.1 F Pulse Rate [ 92 H Pulse Ox Probe] Respiratory 20 Rate Blood Pressure 131/78 [Right Arm] Pulse Ox 95 Medical Decision Making - Management Options MDM Management: Additional Work-up Planned (e.g. ADM/Transfer/OP Study) (Out patient orthopedic referral at [facility].) - Data Complexity MDM Data: X-Ray Ordered and/or Reviewed (Right knee: arthritic changes medial jont space and patello femoralregion, probable joint effusion. No acute fracture.) Disposition Disposition: Discharge Clinical Impression: Right knee injury Qualifiers: Encounter type: initial encounter Qualified Code(s): S89.91XA - Unspecified injury of right lower leg, initial encounter Disposition: Home, Self-Care Condition: (1) Good Additional Instructions: Knee immobilizer. Ice, elevate. Take home meds as directed. Obtain orthopedic referral through [facility] in conjunction with cardiac physician recommendations. Forms: Patient Portal Access Quality - Quality Measures Quality Measures: N/A - Blood Pressure Screening Does Patient Have Any of the Following: No Blood Pressure Classification: Pre-Hypertensive BP Reading Systolic Measurement: 131 Diastolic Measurement: 78 Screening for High Blood Pressure: < Pre-Hypertensive BP, F/U Documented > [ G8950] Pre-Hypertensive Follow-up Interventions: Follow-up with rescreen every year.
[2018-02-02] MEDS ORDERED: HYDROMORPHONE HCL 2 MG/ML VIAL IM ONE (22:57)
[2018-02-02] MEDS ORDERED: ONDANSETRON HCL IV 4 MG/2 ML VIAL IM ONE (22:57)
--- NOTE | 2018-02-05 11:06 | RADIOLOGY REPORT ---
EXAM: RIGHT KNEE HISTORY: SHARP PAIN IN THE RIGHT KNEE. TECHNIQUE: Five views of the right knee were obtained. Comparison: None. FINDINGS: Mild to moderate narrowing of the medial joint space compartment. Marginal osteophytes are present medially. The lateral joint space is well maintained. Mild arthritic changes in the patellofemoral joint. The bones are diffusely osteopenic. There is no fracture or acute osseous abnormality. No destructive or erosive change. There is probably a joint effusion. IMPRESSION: 1. ARTHRITIC CHANGES MEDIAL JOINT SPACE COMPARTMENT AND PATELLOFEMORAL JOINT. 2. PROBABLE JOINT EFFUSION. 3. NO ACUTE FRACTURE. [facility]: [id number] [facility]
== END 2018-02-02 23:32 | disposition home or self-care (01) ==
LOC: ER 21:33
DX: S89.91XA Unspecified injury of right lower leg, initial encounter (principal); X58.XXXA Exposure to other specified factors, initial encounter; Y92.009 Unspecified place in unspecified non-institutional (private) residence as the place of occurrence of the external cause; Z87.891 Personal history of nicotine dependence; Z94.0 Kidney transplant status; Z94.1 Heart transplant status
CPT/HCPCS: 29505; 99283; 96372; 99284; 73564; J2405; J1170